=== PATIENT | female | born 2000 | race Caucasian/White ===

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

== ENCOUNTER 2022-11-30 10:59 | Outpatient (CLI) | payer OTHER ==
[~2022-11-30 10:59] MED LIST: CLARITIN10 MG PO; NASAL MIST126 ML NASAL; OSEL75CA PO; TUSNEL LIQUID178 ML PO; ZITHROMAX500 MG PO
== END 2022-11-30 11:18 | disposition home or self-care (01) ==
LOC: LAB 10:59
PROVIDERS: ATTEND Anesthesiology
DX: R19.5 Other fecal abnormalities (principal)

== ENCOUNTER 2024-10-16 09:47 | Outpatient (CLI) | payer OTHER | END 2024-10-16 10:02 | disposition home or self-care (01) | LOC: MRI 09:47 | PROVIDERS: ATTEND Obstetrics & Gynecology | DX: Q51.28 Other and unspecified doubling of uterus (principal) | CPT/HCPCS: 72196 ==